=== PATIENT | female | born 1980 | race Caucasian/White ===

== ENCOUNTER 2022-12-24 07:37 | Emergency (ER) | payer OTHER ==
[~2022-12-24] VITALS: Ht 165.1 cm; Wt 147.9 kg
[2022-12-24] MEDS ORDERED: REGLAN10 M1 PO (08:27)
== END 2022-12-24 09:21 | disposition home or self-care (01) ==
LOC: ED 07:37
DX: G43.909 Migraine, unspecified, not intractable, without status migrainosus (principal); R11.10 Vomiting, unspecified; Z88.0 Allergy status to penicillin; Z98.51 Tubal ligation status